=== PATIENT | female | born 1955 | race Caucasian/White ===

== ENCOUNTER → 2017-01-16 | Outpatient (CLI) | payer OTHER | LOC: HEART 5 13:00 | DX: R07.9 Chest pain, unspecified (principal); R22.1 Localized swelling, mass and lump, neck; E78.5 Hyperlipidemia, unspecified; M17.10 Unilateral primary osteoarthritis, unspecified knee; J30.9 Allergic rhinitis, unspecified; E02 Subclinical iodine-deficiency hypothyroidism; E55.9 Vitamin D deficiency, unspecified; E04.1 Nontoxic single thyroid nodule ==

== ENCOUNTER → 2020-06-11 | Outpatient (CLI) | payer OTHER ==
[~2020-06-11] MED LIST: CELEBREX200 MG PO
== END ==
LOC: KOH-I 10:00
DX: R20.0 Anesthesia of skin (principal); M50.322 Other cervical disc degeneration at C5-C6 level
CPT/HCPCS: 72050; 73030; 73100

== ENCOUNTER 2021-01-21 09:11 | Emergency (ER) | payer OTHER ==
[2021-01-21 10:33] LABS: HEMOGLOBIN 13.6 gm/dl (12.3-15.3); RED BLOOD COUNT 4.32 M/UL (4.00-5.10); WHITE BLOOD COUNT 7.1 K/UL (4.5-11.0)
[2021-01-21 11:02] LABS: BUN/CREATININE RATIO 9 (0-10)
[2021-01-21] MEDS ORDERED: PROVENTIL HFA6.7 GM INH (13:55)
[2021-01-21] MEDS ORDERED: NAPROSYN500 MG PO (13:55)
== END 2021-01-21 14:20 | disposition home or self-care (01) ==
LOC: ER1 09:11
PROVIDERS: Preventive Medicine Occupational Medicine
DX: J98.11 Atelectasis (principal); R09.1 Pleurisy; J44.9 Chronic obstructive pulmonary disease, unspecified; F17.200 Nicotine dependence, unspecified, uncomplicated
CPT/HCPCS: 76705; 80053; 82550; 82553; 83690; 83874; 83880; 84484; 85025; 85652; 86140; 93005; 96374; 96375; 99285; C9113; J1885; J2405; Q9967

== ENCOUNTER → 2021-04-07 | Outpatient (CLI) | payer OTHER ==
[~2021-04-07] MED LIST changes: +NAPROSYN500 MG PO; +PROVENTIL HFA6.7 GM INH
== END ==
LOC: MAMO 10:48
DX: Z12.31 Encounter for screening mammogram for malignant neoplasm of breast (principal)
CPT/HCPCS: 77063; 77067

== ENCOUNTER → 2021-08-05 | Outpatient (CLI) | payer OTHER | LOC: EXRD 07-19 09:00 | DX: K82.4 Cholesterolosis of gallbladder (principal) | CPT/HCPCS: 76705 ==